=== PATIENT | male | born 1945 | race Two or more races ===

== ENCOUNTER 2023-01-30 08:03 | Outpatient (CLI) | payer OTHER | END 2023-01-30 08:12 | disposition home or self-care (01) | LOC: RX STUDY 08:03 | DX: R10.13 Epigastric pain (principal); R19.8 Other specified symptoms and signs involving the digestive system and abdomen; Z85.07 Personal history of malignant neoplasm of pancreas ==

== ENCOUNTER 2023-03-07 08:17 | Outpatient (CLI) | payer OTHER | END 2023-03-07 08:18 | disposition home or self-care (01) | LOC: NUCLEAR 08:17 | PROVIDERS: ATTEND Internal Medicine Gastroenterology | DX: R10.13 Epigastric pain (principal); R19.8 Other specified symptoms and signs involving the digestive system and abdomen; Z85.07 Personal history of malignant neoplasm of pancreas; E11.9 Type 2 diabetes mellitus without complications ==